=== PATIENT | female | born 1980 | race Hispanic/Latino ===

== ENCOUNTER 2019-08-18 06:23 | Day surgery (SDC) | payer BC, MEDICAID ==
[2019-08-16 09:58] LABS: Hematocrit 40.4 % (30.3-42.9); Mean Corpuscular HGB Conc 35 % (30-34); Mean Corpuscular Volume 95 fl (79-97); Platelet Count 331 K/mm3 (140-440); Red Blood Count 4.23 M/mm3 (3.65-5.03); Red Cell Distribution Width 13.7 % (13.2-15.2)
[~2019-08-18 06:23] MED LIST: CELECOXIB 200 MG CAP PO NR; GABAPENTIN 300 MG CAP PO NR; LACTATED RINGERS 1,000 ML IV SCH; MAGNESIUM OXIDE 400 MG TAB PO SCH; MIDAZOLAM 2 MG/2 ML INJ IV NR
--- NOTE | 2019-08-18 07:07 | Anesthesia Consultation ---
Anesthesia Consult and Med Hx Date of service: 08/18/19 - Airway Anesthetic Teeth Evaluation: Good ROM Head & Neck: Adequate Mental/Hyoid Distance: Adequate Mallampati Class: Class II Intubation Access Assessment: Probably Good - Pulmonary Exam CTA: Yes - Cardiac Exam Cardiac Exam: RRR - Pre-Operative Health Status ASA Pre-Surgery Classification: ASA3 Proposed Anesthetic Plan: General - Pulmonary Hx Smoking: Yes Hx Respiratory Symptoms: No - Cardiovascular System Hx Hypertension: No Hx Heart Attack/AMI: No Hx Percutaneous Transluminal Coronary Angioplasty (PTCA): No Hx Cardia Arrhythmia: No - Central Nervous System CVA: No - Gastrointestinal Hx Gastroesophageal Reflux Disease: Yes (took reflux medication this morning; well controlled) - Endocrine Hx Renal Disease: No Hx Liver Disease: No Hx Insulin Dependent Diabetes: No Hx Non-Insulin Dependent Diabetes: No Hx Thyroid Disease: No - Other Systems Hx Obesity: Yes (BMI 42) - Additional Comments Anesthesia Medical History Comments: No hx anesthetic complications.
--- NOTE | 2019-08-18 07:07 | Anesthesia Day of Surgery ---
Anesthesia Day of Surgery - Day of Surgery Patient Examined: Yes Patient H&P Reviewed: Yes Patient is NPO: Yes
[2019-08-18] MEDS ORDERED: BUPIVACAINE/PF (0.25%) 2.5 MG/ML 30 ML VIAL INFILTRATI ONE ×2 (07:38→10:00)
[2019-08-18] MEDS ORDERED: ONDANSETRON 4 MG/2 ML INJ ONE (07:39)
[2019-08-18] MEDS ORDERED: HYDROmorphone 1 MG/1 ML INJ ONE ×2 (07:39→08:55)
[2019-08-18] MEDS ORDERED: dexAMETHasone 20 MG/5 ML VIAL ONE (07:39)
[2019-08-18] MEDS ORDERED: PHENYLEPHRINE/NS 1,000 MCG/10 ML SYRINGE (OR USE) IV ONE (07:39)
[2019-08-18] MEDS ORDERED: LIDOCAINE MPF (2%) 20 MG/1 ML VIAL 5 ML ONE (07:39)
[2019-08-18] MEDS ORDERED: ROCURONIUM 50 MG/5 ML INJ IV ONE (07:39)
[2019-08-18] MEDS ORDERED: NEOSTIGMINE 10MG/10 ML INJ MDV ONE (07:39)
[2019-08-18] MEDS ORDERED: SUCCINYLCHOLINE CHLORIDE 200 MG/10 ML INJ MDV ONE (07:39)
[2019-08-18] MEDS ORDERED: GLYCOPYRROLATE 0.4 MG/2 ML INJ ONE (07:39)
[2019-08-18] MEDS ORDERED: propofoL 200 MG/20 ML VIAL IV ONE (07:40)
[2019-08-18] MEDS ORDERED: ceFAZolin/STERILE WATER 2 GM/20 ML SYRINGE IV NR (08:00)
--- NOTE | 2019-08-18 08:02 | Short Stay Summary ---
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 tunnel) Social history: - Allergies and Medications Current Medications: Allergies No Known Allergies Allergy (Verified 08/18/19 07:46) Home Medications Medication Instructions Recorded Confirmed Last Taken Type Famotidine [Pepcid] 40 mg PO QHS 08/11/19 08/18/19 08/18/19 05:00 History Simvastatin 20 mg PO DAILY 08/11/19 08/18/19 06/18/19 20:00 History Active Medications Celecoxib (Celebrex) 200 mg PO PREOP NR Stop: 08/18/19 23:59 Gabapentin (Gabapentin) 600 mg PO PREOP NR Stop: 08/18/19 23:59 Hydromorphone HCl (Dilaudid) 0.5 mg IV Q10MIN PRN PRN Reason: Pain , Severe (7-10) Stop: 08/18/19 23:00 Lactated Ringer's (Lactated Ringers) 1,000 mls @ 100 mls/hr IV DIRECT BLAYNE Stop: 08/18/19 23:59 Magnesium Oxide (Mag-Ox) 400 mg PO PREOP BLAYNE Stop: 08/18/19 23:59 Midazolam HCl (Versed) 2 mg IV PREOP NR Stop: 08/18/19 23:59 - Physical exam General appearance: no acute distress Integumentary: no rash, no growths, no abnormal pigmentation Lungs: Clear to auscultation, Normal air movement Breasts: discharge Heart: Regular rate, Normal S1, Normal S2 Gastrointestinal: normal, normoactive bowel sounds Female Genitourinary: normal Rectal Exam: deferred Extremities: No edema - Brief post op/procedure progress note Date of procedure: 08/18/19 Pre-op diagnosis: Pelvic pain, Hematometra, Presence of essure Post-op diagnosis: same Procedure: Hysteroscopy, Laparoscopic salpingectomy Anesthesia: GETA Findings: Edematous, inflamed tubes bilaterally, anteriorly fixed uterus Surgeon: MAIKEL FONG Estimated blood loss: 50-100ml Pathology: list (Right and left fallopian tubes, coils from essure) Specimen disposition: to lab Condition: stable - Hospital course Hospital course: Unremarkable - Disposition Condition at discharge: Good Disposition: [id number] TO HOME OR SELFCARE - Discharge Diagnoses (1) Pelvic pain Status: Chronic (2) Hematometra Status: Chronic Short Stay Discharge Plan Activity: advance as tolerated Weight Bearing Status: Weight Bear as Tolerated Diet: regular, clear liquids Wound: keep clean and dry Follow up with: MAIKEL FONG MD [Staff Physician] - 14 Days Prescriptions: Ibuprofen [Motrin 800 MG tab] 800 mg PO Q8HR PRN #30 tablet PRN Reason: Pain, Moderate (4-6) HYDROcodone/APAP 5-325 [Parker 5/325] 2 each PO Q6HR PRN #30 tablet PRN Reason: Pain
[2019-08-18] MEDS ORDERED: SODIUM CHLORIDE 0.9% IRRIG SOLN 2000 ML IR ONE (10:00)
--- NOTE | 2019-08-18 10:52 | XRay Report ---
ABDOMEN, SINGLE VIEW INDICATION / CLINICAL INFORMATION: INSTRUMENT COUNT/SUTURE NEEDLE. COMPARISON: None available. FINDINGS: Single radiographic image of the abdomen, including the pelvis, shows no radiopaque foreign object. M ore specifically I do not see evidence of a suture needle. Bowel gas pattern is normal. IMPRESSION: No radiopaque foreign object identified in the [id number]. Signer Name: Meghan Ruiz MD Signed: 08/18/2019 10:47 AM Workstation Name: [id number]
[2019-08-18] MEDS: HYDROmorphone 1 MG/1 ML INJ IV PRN ×2 (10:55→11:11)
[2019-08-18 11:46] VITALS: BP 113/72
--- NOTE | 2019-08-18 13:16 | Post Anesthesia Evaluation ---
- Post Anesthesia Evaluation Patient Participated: Yes Airway Patent: Yes Stable Respiratory Function: Yes Nausea/Vomiting: No Temp > 96.8F: Yes Pain Manageable: Yes Adequeate Hydration: Yes Anesthesia Complications: No
--- NOTE | 2019-09-01 13:51 | Operative Report ---
Operative Report Operative Report: Preoperative diagnosis: 1. Worsening pelvic pain 2. Presence of Essure 3. Hematometra Postoperative diagnosis: Same Procedure: Bilateral laparoscopic salpingectomy with removal of Essure, D&C hysteroscopy Surgeon: Maryjane Dennis Anesthesia: General EBL: Minimal IV fluids: 1000 mL Urine output: 150 mL Findings: Normal uterus tubes and ovaries with presents of the Essure, stenotic lower uterine segment Specimens: Right and left fallopian tubes Complications: None The patient was properly identified as herself. She was then taken to the OR with IV running and in place. She was given general anesthesia without difficulty. She was placed in a dorsal lithotomy position. She was then prepped and draped in normal sterile fashion. Attention was turned to the patient's vagina. Her bladder was drained of clear urine with a red rubber catheter. The speculum was then placed the patient's vagina. The cervix was visualized and grasped with tenaculum. Attempts were made to dilate the patient's cervix however the cervix appeared to be stenotic as of the lower uterine segment. After multiple attempts a portion of the uterine cavity was entered into the ostia however could not be visualized with the hysteroscope. The scope was then removed and an acorn cannula was then inserted. The surgeon's gloves were changed and attention turned to the patient's abdomen. A small incision was made in the patient's umbilicus incision a 5 mm trocar was placed. The laparoscope confirmed intra-abdominal placement. The abdomen was insufflated with CO2 gas to approximately 25 mmHg. Both fallopian tubes were identified. With direct visualization a second trocar was placed through an incision in the left lower quadrant. A third trocar was also placed in the suprapubic area. Both tubes were found and followed out to the fimbriated ends. Each tube was cauterized at the portion nearest the cornua, then cauterized across the broad ligament until the tube was completely detached. When detaching the right tube in particular it was noted that a portion of the Essure was embedded in the fundus of the uterus. This was able to be removed with the laparoscopic instruments and handed off to pathology There was excellent hemostasis at the end of this portion of the procedure. Each tube was handed off for pathology along with the foreign objects. At this point the abdomen was deflated. All instruments were then removed from the abdomen. The incisions were then closed with 4-0 Monocryl. The incisions were also injected with quarter percent Marcaine. The patient tolerated the procedure well she was then awakened and taken recovery in stable condition. Sponge needle and instrument counts were correct 2.
== END 2019-08-18 06:24 | disposition home or self-care (01) ==
LOC: OR 06:23
PROVIDERS: ATTEND Obstetrics & Gynecology
DX: R10.2 Pelvic and perineal pain (principal); N83.8 Other noninflammatory disorders of ovary, fallopian tube and broad ligament; N85.7 Hematometra; Z11.59 Encounter for screening for other viral diseases; F17.210 Nicotine dependence, cigarettes, uncomplicated; K21.9 Gastro-esophageal reflux disease without esophagitis; E78.00 Pure hypercholesterolemia, unspecified; E66.9 Obesity, unspecified; Z98.891 History of uterine scar from previous surgery; Z98.890 Other specified postprocedural states; Z90.49 Acquired absence of other specified parts of digestive tract; Z68.41 Body mass index [BMI] 40.0-44.9, adult; Z79.899 Other long term (current) drug therapy
CPT/HCPCS: 36415; 58558; 58670; 74018; 84703; 85027; 88302; A4217; J0330; J1100; J1170; J2250; J2370; J2405; J2704; J2710; J7120; U0003